=== PATIENT | female | born 1965 | race African-American/Black ===

== ENCOUNTER 2017-12-23 10:34 | Emergency (ER) | payer MEDICAID ==
[~2017-12-23] VITALS: Ht 160 cm; Wt 95.0 kg
[~2017-12-23 10:34] MED LIST: ATOR10TA69; METF500T4 PO; TRAM50TA3
[2017-12-23] MEDS ORDERED: SODIUM CHLORIDE 0.9% 1,000 ML IV ONE (13:30)
[2017-12-23] MEDS ORDERED: MECLIZINE 25MG TABLET PO ONE (13:30)
[2017-12-23 15:04] LABS: BASOPHILS % 0.8 % (0.0-2.0); HEMATOCRIT. 36.2 % (36.0-48.0); HEMOGLOBIN. 11.3 g/dL (12.0-16.0); LYMPHOCYTES % 60.1 % (20.0-50.0); MEAN CORPUSCULAR HEMOGLOBIN 22.4 pg (28.0-32.0); MEAN CORPUSCULAR VOLUME 71.9 fL (81.0-99.0); MEAN PLATELET VOLUME 8.3 fl (7.4-10.4); MONOCYTES % 6.2 % (2.0-8.0); NEUTROPHILS % 29.9 % (40.0-76.0); PLATELET 313 x1000/uL (130-400); RED BLOOD CELL COUNT 5.04 mill/uL (4.2-5.4); RED CELL DISTRIBUTION WIDTH 15.8 % (11.6-14.6)
[2017-12-23 15:15] VITALS: BP 131/78
[2017-12-23 15:18] LABS: CHLORIDE 100 mEq/L (98-107)
[2017-12-23 19:18] LABS: CLARITY URINE CLEAR (CLEAR); COLOR URINE YELLOW (YELLOW); KETONES URINE NEGATIVE (NEGATIVE); LEUKOCYTE ESTERASE URINE NEGATIVE (NEGATIVE); NITRITE URINE NEGATIVE (NEGATIVE); OCCULT BLOOD URINE NEGATIVE (NEGATIVE); PH URINE 7.5 (4.5-8.0); PROTEIN URINE NEGATIVE (NEGATIVE); UROBILINOGEN URINE 0.2 E.U./dL (0.2-1.0)
[2017-12-23 19:49] LABS: *AMPHETAMINES SCREEN URINE NEGATIVE (NEGATIVE); *BARBITURATES SCREEN URINE NEGATIVE (NEGATIVE); *BENZODIAZEPINES SCREEN URINE NEGATIVE (NEGATIVE); *COCAINE SCREEN URINE NEGATIVE (NEGATIVE); CANNABINOID URINE SCREEN PRESUMTIVE POSITIVE (NEGATIVE); METHADONE URINE SCREEN NEGATIVE (NEGATIVE); OPIATES URINE SCREEN NEGATIVE (NEGATIVE); PHENCYCLIDINE URINE SCREEN NEGATIVE (NEGATIVE)
== END 2017-12-23 17:44 | disposition home or self-care (01) ==
LOC: ER 11:15
DX: R42 Dizziness and giddiness (principal); J44.9 Chronic obstructive pulmonary disease, unspecified; E78.00 Pure hypercholesterolemia, unspecified; I10 Essential (primary) hypertension; E11.9 Type 2 diabetes mellitus without complications; Z88.0 Allergy status to penicillin
CPT/HCPCS: 36415; 80048; 80305; 81003; 85025; 93005; 96360; 99285; J7030; J8597

== ENCOUNTER 2018-03-09 08:11 | Emergency (ER) | payer MEDICAID ==
[~2018-03-09] VITALS: Ht 160 cm; Wt 100.0 kg
[2018-03-09] MEDS ORDERED: ACETAMINOPHEN WITH CODEINE 300/30MG TABLET PO ONE (12:30)
[2018-03-09 12:52] LABS: BASOPHILS % 1.5 % (0.0-2.0); EOSINOPHILS % 2.9 % (0.0-5.0); HEMATOCRIT. 34.8 % (36.0-48.0); HEMOGLOBIN. 10.9 g/dL (12.0-16.0); LYMPHOCYTES % 45.7 % (20.0-50.0); MEAN CORPUSCULAR HEMOGLOBIN 22.2 pg (28.0-32.0); MEAN CORPUSCULAR VOLUME 70.9 fL (81.0-99.0); MEAN PLATELET VOLUME 7.8 fl (7.4-10.4); MONOCYTES % 6.9 % (2.0-8.0); PLATELET 316 x1000/uL (130-400); RED BLOOD CELL COUNT 4.91 mill/uL (4.2-5.4); RED CELL DISTRIBUTION WIDTH 16.6 % (11.6-14.6)
[2018-03-09 12:58] LABS: CHLORIDE 107 mEq/L (98-107)
[2018-03-09 13:00] LABS: PARTIAL THROMBOPLASTIN TIME 24.5 sec (23.4-31.0); PROTHROMBIN TIME 10.1 sec (9.4-11.6)
[2018-03-09 15:56] VITALS: BP 114/78
== END 2018-03-09 16:02 | disposition home or self-care (01) ==
LOC: ER 08:43
DX: M79.605 Pain in left leg (principal); M79.604 Pain in right leg; J45.909 Unspecified asthma, uncomplicated; J44.9 Chronic obstructive pulmonary disease, unspecified; E11.9 Type 2 diabetes mellitus without complications; E78.00 Pure hypercholesterolemia, unspecified; I10 Essential (primary) hypertension; Z98.890 Other specified postprocedural states; Z88.0 Allergy status to penicillin
CPT/HCPCS: 36415; 80053; 82962; 85025; 85610; 85730; 93970; 99285; A4315

== ENCOUNTER 2018-06-01 17:00 | Emergency (ER) | payer MEDICAID ==
[~2018-06-01] VITALS: Ht 165.1 cm; Wt 116.0 kg
[~2018-06-01 17:00] MED LIST changes: -METF500T4 PO; +METF500T6 PO
[2018-06-01 19:55] LABS: BASOPHILS % 1.2 % (0.0-2.0); EOSINOPHILS % 0.2 % (0.0-5.0); HEMATOCRIT. 34.7 % (36.0-48.0); HEMOGLOBIN. 10.7 g/dL (12.0-16.0); LYMPHOCYTES % 20.8 % (20.0-50.0); MEAN CORPUSCULAR HEMOGLOBIN 21.5 pg (28.0-32.0); MEAN CORPUSCULAR VOLUME 69.6 fL (81.0-99.0); MEAN PLATELET VOLUME 7.8 fl (7.4-10.4); MONOCYTES % 8.4 % (2.0-8.0); NEUTROPHILS % 69.4 % (40.0-76.0); PLATELET 291 x1000/uL (130-400); RED BLOOD CELL COUNT 4.98 mill/uL (4.2-5.4); RED CELL DISTRIBUTION WIDTH 16.7 % (11.6-14.6)
[2018-06-01 20:00] LABS: CHLORIDE 102 mEq/L (98-107)
[2018-06-01 20:01] LABS: INR 1.1; PROTHROMBIN TIME 11.3 sec (9.4-11.6)
[2018-06-01 20:10] LABS: PLATELET ESTIMATE NORMAL
[2018-06-01 20:27] LABS: CLARITY URINE CLEAR (CLEAR); COLOR URINE YELLOW (YELLOW); KETONES URINE NEGATIVE (NEGATIVE); LEUKOCYTE ESTERASE URINE NEGATIVE (NEGATIVE); NITRITE URINE NEGATIVE (NEGATIVE); OCCULT BLOOD URINE NEGATIVE (NEGATIVE); PROTEIN URINE NEGATIVE (NEGATIVE); SPECIFIC GRAVITY URINE 1.018 (1.005-1.030); UROBILINOGEN URINE 0.2 E.U./dL (0.2-1.0)
[2018-06-01] MEDS ORDERED: KETOROLAC 30MG/ML VIAL IV STA (22:52)
[2018-06-01] MEDS ORDERED: SODIUM CHLORIDE 0.9% 1,000 ML IV ONE (22:52)
[2018-06-01] MEDS ORDERED: DEXAMETHASONE 4MG/ML 1ML VIAL IV ONE (23:00)
[2018-06-02] MEDS ORDERED: ACETAMINOPHEN 500MG TABLET PO ONE (01:15)
[2018-06-02 01:48] VITALS: BP 108/65
== END 2018-06-02 01:52 | disposition home or self-care (01) ==
LOC: ER 17:41
DX: J02.0 Streptococcal pharyngitis (principal); R10.9 Unspecified abdominal pain; R11.2 Nausea with vomiting, unspecified; E11.9 Type 2 diabetes mellitus without complications; J44.9 Chronic obstructive pulmonary disease, unspecified; Z88.0 Allergy status to penicillin; Z87.891 Personal history of nicotine dependence; Z98.890 Other specified postprocedural states; Z79.899 Other long term (current) drug therapy
CPT/HCPCS: 36415; 80053; 81003; 83690; 85025; 85610; 87430; 96361; 96374; 96375; 99285; J1100; J1885; J7030; Z7610

== ENCOUNTER 2019-05-21 19:29 | Emergency (ER) | payer MEDICAID ==
[~2019-05-21] VITALS: Ht 160 cm; Wt 102.0 kg
[~2019-05-21 19:29] MED LIST changes: +METF-414 PO; -METF500T6 PO
[2019-05-22] MEDS ORDERED: MECLIZINE 25MG TABLET PO ONE (01:30)
[2019-05-22] MEDS ORDERED: IBUPROFEN 600MG TABLET PO ONE (03:30)
[2019-05-22 06:04] VITALS: BP 113/70
== END 2019-05-22 06:13 | disposition home or self-care (01) ==
LOC: ER 19:29
DX: R60.9 Edema, unspecified (principal); R42 Dizziness and giddiness; J44.9 Chronic obstructive pulmonary disease, unspecified; E11.9 Type 2 diabetes mellitus without complications; Z88.0 Allergy status to penicillin; Z98.51 Tubal ligation status; Z87.891 Personal history of nicotine dependence
CPT/HCPCS: 93970; 99284; J8597; Z7610

== ENCOUNTER 2020-04-15 11:24 | Emergency (ER) | payer MEDICAID ==
[~2020-04-15] VITALS: Ht 165.1 cm; Wt 90.0 kg
[2020-04-15 11:38] VITALS: BP 130/67
== END 2020-04-15 13:04 | disposition home or self-care (01) ==
LOC: ER 11:24
DX: L25.9 Unspecified contact dermatitis, unspecified cause (principal); J45.909 Unspecified asthma, uncomplicated; J44.9 Chronic obstructive pulmonary disease, unspecified; E11.9 Type 2 diabetes mellitus without complications; Z88.0 Allergy status to penicillin
CPT/HCPCS: 99283

== ENCOUNTER 2020-04-25 17:01 | Emergency (ER) | payer MEDICAID ==
[~2020-04-25] VITALS: Ht 160 cm; Wt 86.0 kg
[2020-04-25 17:10] VITALS: BP 133/56
[2020-04-25] MEDS ORDERED: DEXAMETHASONE 10 MG/ML VIAL IM ONE (18:00)
== END 2020-04-25 18:34 | disposition home or self-care (01) ==
LOC: ER 17:01
DX: R21 Rash and other nonspecific skin eruption (principal); J44.1 Chronic obstructive pulmonary disease with (acute) exacerbation; E11.9 Type 2 diabetes mellitus without complications; Z88.0 Allergy status to penicillin; Z79.899 Other long term (current) drug therapy; Z98.890 Other specified postprocedural states
CPT/HCPCS: 96372; 99283; J1100

== ENCOUNTER 2020-05-01 19:37 | Emergency (ER) | payer MEDICAID ==
[~2020-05-01] VITALS: Ht 160 cm; Wt 82.0 kg
[2020-05-01] MEDS ORDERED: METHYLPREDNISOLONE SOD SUCC 125 MG/2 ML VIAL IV ONE (21:15)
[2020-05-01] MEDS ORDERED: FAMOTIDINE 20MG/2ML VIAL IV ONE (21:15)
[2020-05-01] MEDS ORDERED: DIPHENHYDRAMINE 50MG/ML VIAL IV ONE (21:15)
[2020-05-01 22:58] VITALS: BP 124/74
== END 2020-05-01 22:59 | disposition home or self-care (01) ==
LOC: ER 19:37
DX: L50.9 Urticaria, unspecified (principal); E11.9 Type 2 diabetes mellitus without complications; J44.9 Chronic obstructive pulmonary disease, unspecified; Z79.84 Long term (current) use of oral hypoglycemic drugs; Z88.0 Allergy status to penicillin
CPT/HCPCS: 96374; 96375; 99284; J1200; J2930; J3490

== ENCOUNTER 2021-02-28 09:15 | Emergency (ER) | payer MEDICAID ==
[~2021-02-28] VITALS: Ht 160 cm; Wt 70.0 kg
[2021-02-28] MEDS ORDERED: KETOROLAC 60MG/2ML VIAL IM ONE (10:00)
[2021-02-28] MEDS ORDERED: DEXAMETHASONE 4MG/ML 1ML VIAL IM ONE (10:00)
[2021-02-28] MEDS ORDERED: CYCL10TA7 MT (10:15)
[2021-02-28] MEDS ORDERED: IBUP-2028 MT (10:15)
[2021-02-28 10:36] VITALS: BP 129/61
== END 2021-02-28 10:39 | disposition home or self-care (01) ==
LOC: ER 09:15
DX: M54.16 Radiculopathy, lumbar region (principal); J45.909 Unspecified asthma, uncomplicated; J44.9 Chronic obstructive pulmonary disease, unspecified; E11.9 Type 2 diabetes mellitus without complications; Z88.0 Allergy status to penicillin; Z87.891 Personal history of nicotine dependence
CPT/HCPCS: 96372; 99284; J1100; J1885; Z7610

== ENCOUNTER 2021-06-13 21:31 | Emergency (ER) | payer BC, MEDICAID ==
[~2021-06-13] VITALS: Ht 170.2 cm; Wt 68.0 kg
[~2021-06-13 21:31] MED LIST changes: +CYCL10TA7 MT; +IBUP-2028 MT
[2021-06-13] MEDS ORDERED: LORAZEPAM 2MG/ML CPJ IV ONE (21:45)
[2021-06-13 22:00] VITALS: BP 131/65
== END 2021-06-13 22:00 | disposition home or self-care (01) ==
LOC: ER 21:51
DX: G71.00 Muscular dystrophy, unspecified (principal); J45.909 Unspecified asthma, uncomplicated; J44.9 Chronic obstructive pulmonary disease, unspecified; E11.9 Type 2 diabetes mellitus without complications; Z88.0 Allergy status to penicillin; Z98.84 Bariatric surgery status
CPT/HCPCS: 93005; 96374; 99283; J2060